=== PATIENT | female | born 1965 | race Caucasian/White ===

== ENCOUNTER → 2017-12-18 | Day surgery (SDC) | payer SELFPAY ==
--- NOTE | 2017-12-18 10:55 | RAD REPORT ---
EXAM DESCRIPTION: US - Guided FNA Non Breast - 12/18/2017 10:38 am CLINICAL HISTORY: Thyroid nodule. COMPARISON: None. FINDINGS: Preoperative diagnosis: 15 mm left thyroid nodule.. Post operative diagnosis: Same. Conscious Sedation: None Fluoroscopy time: None Contrast used: None Estimated blood loss: Minimal Specimens:25 gauge FNA x6 The left neck was prepped and draped in the usual sterile fashion. 1% lidocaine was infiltrated into the subcutaneous tissues for local anesthesia. Real time ultrasound scanning of the left thyroid lobe demonstrated a 1.5 cm hypoechoic nodule. Additional thyroid nodules were either below size criteria amenable to FNA or predominantly cystic. Under ultrasound guidance, 6 x 25 gauge FNA specimens were o btained of this lesion and sent to pathology for evaluation. There were no complications. IMPRESSION: Successful ultrasound-guided left thyroid nodule FNA procedure.
== END | disposition home or self-care (01) ==
LOC: FNA 09:33
PROVIDERS: ATTEND Family Medicine
PROC: 0G9G3ZX Drainage of Left Thyroid Gland Lobe, Percutaneous Approach, Diagnostic (ICD-10-PCS; principal; 2017-12-18)
PROC: BG44ZZZ Ultrasonography of Thyroid Gland (ICD-10-PCS; 2017-12-18)
DX: E04.2 Nontoxic multinodular goiter (principal)
CPT/HCPCS: 88162

== ENCOUNTER → 2024-03-11 | Day surgery (SDC) | payer MEDICARE ==
--- NOTE | 2024-03-11 12:25 | RAD REPORT ---
EXAM DESCRIPTION: US - Guided FNA Non Breast - 03/11/2024 10:38 am CLINICAL HISTORY: Thyroid nodule ICD E04.1 COMPARISON: Ultrasound February 25, 2024 TECHNIQUE: Risks, benefits and alternatives of procedure explained to the patient and informed conse nt obtained. Skin and deeper tissues anesthetized with lidocaine. Under sonographic guidance, five 25 gauge needle passes were obtained into the dominant nodule within the left lobe of the thyroid gland. Specimens given to pathology. Patient experienced no immediate complication IMPRESSION: Fine-needle aspiration of a dominant nodule within left lobe of thyroid gland
== END ==
LOC: FNA 09:36
PROVIDERS: ATTEND Otolaryngology
PROC: 0GBG3ZX Excision of Left Thyroid Gland Lobe, Percutaneous Approach, Diagnostic (ICD-10-PCS; principal; 2024-03-11)
DX: E04.1 Nontoxic single thyroid nodule (principal)
CPT/HCPCS: 88162